=== PATIENT | female | born 1985 | race Caucasian/White ===

== ENCOUNTER 2023-01-03 12:00 | Emergency (ER) | payer OTHER ==
[2023-01-03 12:27] VITALS: BP 117/80; PULSE 89; RESP 16; TEMP 98.2; BMI 27.1
[2023-01-03 13:10] LABS: THROAT:GRP A STREP NOT DETECTED (NOTDETECTED)
== END 2023-01-03 18:21 | disposition home or self-care (01) ==
LOC: JERFT 12:00
DX: L04.9 Acute lymphadenitis, unspecified (principal)
CPT/HCPCS: 0241U-QW; 76536-TC; 87651; 99284-25

== ENCOUNTER 2023-10-20 11:33 | Inpatient (IN) | payer OTHER ==
[2023-10-20] MEDS ORDERED: SODIUM CHLORIDE 0.9% 500 ML INFUS.BAG IV ONE ×2 (12:25→16:05)
[2023-10-20] MEDS ORDERED: HYDROmorphone HCl 2 MG/ML VIAL IVPUSH ONE ×2 (12:37→15:47)
[2023-10-20] MEDS ORDERED: ACETAMINOPHEN 1000 MG/100 ML BAG IVPB ONE (12:37)
[2023-10-20] MEDS ORDERED: ACETAMINOPHEN INJECTION 100 ML IVPB ONE (12:55)
[2023-10-20] MEDS ORDERED: HYDROmorphone HCl 2 MG/ML VIAL ONE ×2 (12:55→15:58)
[2023-10-20 13:04] LABS: BASO % 0.3 % (0-2.0); HEMATOCRIT 40.4 % (32.4-45.2); HEMOGLOBIN 13.8 GM/dL (10.7-15.3); MCHC 34.1 g/dl (32.0-36.0); MEAN CELL VOLUME 93.8 fl (80-96); MEAN PLT VOLUME 8.9 fl (7.5-11.1); MONO % 2.3 % (3.8-10.2); NEUT % 90.4 % (42.8-82.8); PLATELET COUNT 346 10^3/uL (134-434); RDW 14.3 % (11.6-15.6); WHITE BLOOD COUNT 16.5 K/mm3 (4.0-10.0)
[2023-10-20 13:32] LABS: POTASSIUM 3.9 mmol/L (3.5-5.1)
[2023-10-20 13:34] LABS: CALCIUM 9.2 mg/dL (8.5-10.1)
[2023-10-20 13:35] LABS: ALBUMIN 3.9 g/dl (3.4-5.0); BLOOD UREA NITROGEN 10.8 mg/dL (7-18)
[2023-10-20 13:38] LABS: CREATININE 0.9 mg/dL (0.55-1.3)
[2023-10-20 13:39] LABS: BILIRUBIN,TOTAL 0.4 mg/dL (0.2-1); TOT PROT 8.2 g/dl (6.4-8.2)
[2023-10-20 13:58] LABS: LACTIC ACID 2.2 mmol/L (0.4-2.0)
[2023-10-20] MEDS ORDERED: CEFTRIAXONE 1,000 MG in DEXTROSE 5%-WATER - 50 ML IVPB ONE (14:33)
[2023-10-20 14:40] LABS: URINE APPEARANCE CLEAR; URINE BILIRUBIN NEGATIVE (NEGATIVE); URINE COLOR YELLOW; URINE GLUCOSE (UA) NEGATIVE (NEGATIVE); URINE KETONE NEGATIVE (NEGATIVE); URINE LEUK ESTERASE NEGATIVE (NEGATIVE); URINE NITRITE NEGATIVE (NEGATIVE); URINE PROTEIN NEGATIVE (NEGATIVE); URINE UROBILINOGEN 0.2 mg/dL (0.2-1.0)
[2023-10-20 14:43] LABS: HCG,QUALITATIVE URINE Negative
[2023-10-20] MEDS ORDERED: CEFTRIAXONE 1 GM/50 ML BAG ONE ×2 (15:50→22:20)
[2023-10-20] MEDS ORDERED: SODIUM CHLORIDE 500 ML IV STA (16:22)
[2023-10-20 16:44] LABS: INR 1.44 (0.83-1.09); PROTHROMBIN TIME (PATIENT) 16.6 SEC (9.7-13.0)
[2023-10-20 16:47] LABS: ACTIVATED PTT 31.5 SECONDS (25.2-36.5)
[2023-10-20] MEDS ORDERED: IBUPROFEN 600 MG TABLET (FP) PO ONE ×2 (17:13→17:22)
[2023-10-20] MEDS ORDERED: KETOROLAC TROMETHAMINE 15 MG/ML VIAL IVPUSH ONE (17:13)
[2023-10-20] MEDS ORDERED: KETOROLAC TROMETHAMINE 15 MG/ML VIAL ONE (17:22)
[2023-10-20] MEDS ORDERED: LACTATED RINGERS SOLUTION 1,000 ML/1,000 ML INFUS.BAG IV SCH (17:45)
[2023-10-20] MEDS ORDERED: morphine CARPU-JECT 2 MG/1 ML DISP.SYRIN IVPUSH PRN (17:46)
[2023-10-20] MEDS ORDERED: HYDROmorphone HCl 2 MG/ML VIAL IVPUSH PRN (17:47)
[2023-10-20 18:02] LABS: LACTIC ACID 2.2 mmol/L (0.4-2.0)
[2023-10-20] MEDS ORDERED: SODIUM CHLORIDE 1,000 ML IV SCH (21:30)
[2023-10-20] MEDS ORDERED: CIPROFLOXACIN 400 MG/D5W 400 MG/200 ML IVPB IVPB SCH (22:00)
[2023-10-20] MEDS ORDERED: CEFTRIAXONE 1 GM in DEXTROSE 5%-WATER - 50 ML IVPB ONE (22:30)
[2023-10-21 04:57] VITALS: BMI 30.6
[2023-10-21 06:57] LABS: HEMATOCRIT 32.8 % (32.4-45.2); HEMOGLOBIN 10.9 GM/dL (10.7-15.3); MCH 31.5 pg (25.7-33.7); MCHC 33.1 g/dl (32.0-36.0); MEAN CELL VOLUME 95.2 fl (80-96); MEAN PLT VOLUME 8.7 fl (7.5-11.1); PLATELET COUNT 234 10^3/uL (134-434); RBC 3.45 M/mm3 (3.60-5.2); RDW 13.7 % (11.6-15.6)
[2023-10-21 07:09] LABS: POTASSIUM 3.3 mmol/L (3.5-5.1)
[2023-10-21 07:17] LABS: BLOOD UREA NITROGEN 7.4 mg/dL (7-18); MAGNESIUM 1.5 mg/dL (1.8-2.4)
[2023-10-21 07:21] LABS: CREATININE 0.6 mg/dL (0.55-1.3); PHOSPHOROUS 2.9 mg/dL (2.5-4.9)
[2023-10-21 08:05] LABS: CALCIUM 7.8 mg/dL (8.5-10.1)
[2023-10-21] MEDS ORDERED: MAGNESIUM 2GM/50ML STERILE WATER IVPB IVPB ONE ×2 (08:45→12:15)
[2023-10-21] MEDS: ENOXAPARIN NA (PORCINE) 40 MG/0.4 ML DISP.SYRIN SQ SCH (10:05)
[2023-10-21] MEDS ORDERED: SODIUM CHLORIDE 1,000 ML IV SCH (10:15)
[2023-10-21] MEDS ORDERED: POTASSIUM CHLORIDE ORAL LIQUID 20 MEQ/15 ML PO ONE ×2 (10:45→13:00)
[2023-10-21] MEDS: ACETAMINOPHEN 1000 MG/100 ML BAG IVPB PRN ×2 (11:36→16:24)
[2023-10-21] MEDS: CEFTRIAXONE 1 GM in DEXTROSE 5%-WATER - 50 ML IVPB SCH (13:34)
[2023-10-21] MEDS: SODIUM CHLORIDE 1,000 ML IV SCH ×2 (13:35→20:22)
[2023-10-21] MEDS ORDERED: MAGNESIUM SULF 50% (8.12 MEQ/2 ML-1 GM VIAL) IVPB SCH ×2 (16:45→22:00)
[2023-10-21] MEDS ORDERED: ACETAMINOPHEN 1000 MG/100 ML BAG IVPB ONE (20:08)
[2023-10-22] MEDS: ACETAMINOPHEN 1000 MG/100 ML BAG IVPB PRN ×3 (03:34→16:13)
[2023-10-22] MEDS: SODIUM CHLORIDE 1,000 ML IV SCH (03:35)
[2023-10-22 07:25] LABS: BASO % 0.2 % (0-2.0); EOS % 0.3 % (0-4.5); HEMATOCRIT 33.7 % (32.4-45.2); HEMOGLOBIN 11.3 GM/dL (10.7-15.3); LYMPH % 7.2 % (8-40); MCH 31.7 pg (25.7-33.7); MCHC 33.5 g/dl (32.0-36.0); MEAN CELL VOLUME 94.7 fl (80-96); MEAN PLT VOLUME 8.8 fl (7.5-11.1); MONO % 3.1 % (3.8-10.2); NEUT % 89.2 % (42.8-82.8); PLATELET COUNT 227 10^3/uL (134-434); RBC 3.56 M/mm3 (3.60-5.2); WHITE BLOOD COUNT 16.5 K/mm3 (4.0-10.0)
[2023-10-22 08:03] LABS: POTASSIUM 3.3 mmol/L (3.5-5.1)
[2023-10-22 08:10] LABS: CALCIUM 8.3 mg/dL (8.5-10.1)
[2023-10-22 08:11] LABS: MAGNESIUM 2.2 mg/dL (1.8-2.4)
[2023-10-22 08:14] LABS: CREATININE 0.6 mg/dL (0.55-1.3); PHOSPHOROUS 2.6 mg/dL (2.5-4.9)
[2023-10-22 08:16] LABS: BILIRUBIN,TOTAL 0.4 mg/dL (0.2-1)
[2023-10-22 08:30] LABS: ALBUMIN 2.4 g/dl (3.4-5.0); TOT PROT 5.6 g/dl (6.4-8.2)
[2023-10-22] MEDS ORDERED: MAGNESIUM SULF 50% (8.12 MEQ/2 ML-1 GM VIAL) IVPB SCH ×2 (10:00)
[2023-10-22] MEDS ORDERED: POTASSIUM CHLORIDE ORAL LIQUID 20 MEQ/15 ML PO SCH ×2 (10:00)
[2023-10-22] MEDS: POTASSIUM CHLORIDE 40 MEQ in SODIUM CHLORIDE 1,000 ML IV SCH ×2 (10:15→18:10)
[2023-10-22] MEDS: CEFTRIAXONE 1 GM in DEXTROSE 5%-WATER - 50 ML IVPB SCH (10:16)
[2023-10-22] MEDS: ENOXAPARIN NA (PORCINE) 40 MG/0.4 ML DISP.SYRIN SQ SCH (13:04)
[2023-10-22] MEDS: PIPERACILLIN/TAZOB 3.375 GM 3.375 GM in DEXTROSE 5%-WATER - 50 ML IVPB SCH ×2 (15:09→18:11)
[2023-10-23] MEDS ORDERED: ACETAMINOPHEN 1000 MG/100 ML BAG IVPB ONE (03:38)
[2023-10-23] MEDS: PIPERACILLIN/TAZOB 3.375 GM 3.375 GM in DEXTROSE 5%-WATER - 50 ML IVPB SCH ×3 (04:00→17:33)
[2023-10-23 07:19] LABS: HEMATOCRIT 34.6 % (32.4-45.2); HEMOGLOBIN 11.4 GM/dL (10.7-15.3); MCH 31.5 pg (25.7-33.7); MEAN CELL VOLUME 95.5 fl (80-96); MEAN PLT VOLUME 8.8 fl (7.5-11.1); PLATELET COUNT 274 10^3/uL (134-434); RBC 3.62 M/mm3 (3.60-5.2); WHITE BLOOD COUNT 15.5 K/mm3 (4.0-10.0)
[2023-10-23 07:37] LABS: POTASSIUM 3.3 mmol/L (3.5-5.1)
[2023-10-23 07:41] LABS: CALCIUM 8.4 mg/dL (8.5-10.1)
[2023-10-23 07:42] LABS: BLOOD UREA NITROGEN 4.5 mg/dL (7-18); MAGNESIUM 1.8 mg/dL (1.8-2.4)
[2023-10-23 07:44] LABS: ALBUMIN 2.6 g/dl (3.4-5.0); CREATININE 0.6 mg/dL (0.55-1.3)
[2023-10-23 07:45] LABS: PHOSPHOROUS 3.1 mg/dL (2.5-4.9)
[2023-10-23 07:46] LABS: BILIRUBIN,TOTAL 0.5 mg/dL (0.2-1); TOT PROT 6.1 g/dl (6.4-8.2)
[2023-10-23] MEDS ORDERED: SODIUM CHLORIDE 1,000 ML IV SCH (08:15)
[2023-10-23] MEDS: ENOXAPARIN NA (PORCINE) 40 MG/0.4 ML DISP.SYRIN SQ SCH (10:18)
[2023-10-23] MEDS ORDERED: ACETAMINOPHEN 1000 MG/100 ML BAG IVPB PRN (13:38)
[2023-10-23] MEDS: KCL 10 MEQ IVPB 10 MEQ/100 ML INFUS.BAG IVPB SCH ×3 (14:55→20:45)
[2023-10-23] MEDS ORDERED: POTASSIUM CHLORIDE ORAL LIQUID 20 MEQ/15 ML PO ONE (17:39)
[2023-10-23] MEDS: LACTATED RINGERS SOLUTION 1,000 ML/1,000 ML INFUS.BAG IV SCH (17:57)
[2023-10-23 18:29] LABS: ALLENS TEST POSITIVE; ARTERIAL BLD GAS O2 SATURATION 96.7 % (95-98); ARTERIAL BLOOD GAS BASE EXCESS -5.9 mmol/L (-2-2); ARTERIAL BLOOD GAS PO2 88.7 mmHg (80-100); ARTERIAL BLOOD GAS pH 7.377 (7.350-7.450)
[2023-10-23] MEDS ORDERED: KCL 10 MEQ IVPB 10 MEQ/100 ML INFUS.BAG IVPB SCH (20:45)
[2023-10-24] MEDS: LACTATED RINGERS SOLUTION 1,000 ML/1,000 ML INFUS.BAG IV SCH ×3 (00:11→16:58)
[2023-10-24] MEDS: ACETAMINOPHEN 1000 MG/100 ML BAG IVPB PRN ×2 (00:15→10:57)
[2023-10-24] MEDS: PIPERACILLIN/TAZOB 3.375 GM 3.375 GM in DEXTROSE 5%-WATER - 50 ML IVPB SCH ×3 (03:05→17:00)
[2023-10-24 09:28] LABS: HEMATOCRIT 35.3 % (32.4-45.2); HEMOGLOBIN 11.8 GM/dL (10.7-15.3); MCHC 33.4 g/dl (32.0-36.0); MEAN CELL VOLUME 95.8 fl (80-96); MEAN PLT VOLUME 8.5 fl (7.5-11.1); PLATELET COUNT 315 10^3/uL (134-434); RBC 3.69 M/mm3 (3.60-5.2); RDW 14.1 % (11.6-15.6)
[2023-10-24 09:43] LABS: POTASSIUM 3.8 mmol/L (3.5-5.1)
[2023-10-24 09:49] LABS: ALBUMIN 2.3 g/dl (3.4-5.0); BLOOD UREA NITROGEN 4.4 mg/dL (7-18); CALCIUM 8.4 mg/dL (8.5-10.1)
[2023-10-24 09:50] LABS: MAGNESIUM 1.9 mg/dL (1.8-2.4)
[2023-10-24 09:52] LABS: CREATININE 0.5 mg/dL (0.55-1.3); PHOSPHOROUS 3.2 mg/dL (2.5-4.9)
[2023-10-24 09:53] LABS: BILIRUBIN,TOTAL 0.5 mg/dL (0.2-1); TOT PROT 6.1 g/dl (6.4-8.2)
[2023-10-24] MEDS: ENOXAPARIN NA (PORCINE) 40 MG/0.4 ML DISP.SYRIN SQ SCH (10:56)
[2023-10-24] MEDS ORDERED: ACETAMINOPHEN 1000 MG/100 ML BAG IVPB ONE (23:07)
[2023-10-25] MEDS ORDERED: PIPERACILLIN/TAZOBACTAM 3.375 GM VIAL IVPB ONE (02:52)
[2023-10-25] MEDS: PIPERACILLIN/TAZOB 3.375 GM 3.375 GM in DEXTROSE 5%-WATER - 50 ML IVPB SCH (02:55)
[2023-10-25] MEDS: LACTATED RINGERS SOLUTION 1,000 ML/1,000 ML INFUS.BAG IV SCH (06:38)
[2023-10-25 08:43] LABS: POTASSIUM 3.5 mmol/L (3.5-5.1)
[2023-10-25 08:48] LABS: BLOOD UREA NITROGEN 4.2 mg/dL (7-18); CALCIUM 8.3 mg/dL (8.5-10.1)
[2023-10-25 08:52] LABS: CREATININE 0.4 mg/dL (0.55-1.3)
[2023-10-25] MEDS: ACETAMINOPHEN 325 MG TABLET (FP) PO PRN ×2 (09:07→21:12)
[2023-10-25] MEDS: ENOXAPARIN NA (PORCINE) 40 MG/0.4 ML DISP.SYRIN SQ SCH (09:08)
[2023-10-25 09:12] LABS: BASO % 0.7 % (0-2.0); EOS % 3.3 % (0-4.5); HEMATOCRIT 36.1 % (32.4-45.2); HEMOGLOBIN 12.2 GM/dL (10.7-15.3); LYMPH % 17.8 % (8-40); MCH 31.6 pg (25.7-33.7); MCHC 33.7 g/dl (32.0-36.0); MEAN CELL VOLUME 93.7 fl (80-96); MEAN PLT VOLUME 8.1 fl (7.5-11.1); MONO % 11.5 % (3.8-10.2); NEUT % 66.7 % (42.8-82.8); PLATELET COUNT 373 10^3/uL (134-434); RBC 3.85 M/mm3 (3.60-5.2); RDW 14.6 % (11.6-15.6); WHITE BLOOD COUNT 9.8 K/mm3 (4.0-10.0)
[2023-10-25] MEDS ORDERED: D5-1/2NS+20 MEQ KCL - 20 MEQ/1,000 ML INFUS.BAG IV SCH (10:30)
[2023-10-25] MEDS: D5-1/2NS+20 MEQ KCL - 20 MEQ/1,000 ML INFUS.BAG IV SCH (11:12)
[2023-10-26] MEDS: D5-1/2NS+20 MEQ KCL - 20 MEQ/1,000 ML INFUS.BAG IV SCH ×2 (02:51→10:30)
[2023-10-26 09:29] LABS: BASO % 0.6 % (0-2.0); EOS % 2.4 % (0-4.5); HEMATOCRIT 35.5 % (32.4-45.2); LYMPH % 23.6 % (8-40); MCH 31.8 pg (25.7-33.7); MCHC 33.9 g/dl (32.0-36.0); MEAN CELL VOLUME 93.8 fl (80-96); MEAN PLT VOLUME 7.8 fl (7.5-11.1); NEUT % 62.4 % (42.8-82.8); PLATELET COUNT 440 10^3/uL (134-434); RBC 3.79 M/mm3 (3.60-5.2); RDW 13.8 % (11.6-15.6); WHITE BLOOD COUNT 8.8 K/mm3 (4.0-10.0)
[2023-10-26] MEDS ORDERED: MAGNESIUM CITRATE 300 ML BOTTLE PO ONE (10:00)
[2023-10-26 11:36] LABS: CHLORIDE 104 mmol/L (98-107); POTASSIUM 3.5 mmol/L (3.5-5.1); SODIUM 138 mmol/L (136-145)
[2023-10-26 12:24] LABS: ANION GAP 12 mmol/L (4-13); CO2 22 mmol/L (21-32)
[2023-10-26 12:30] LABS: CALCIUM 8.5 mg/dL (8.5-10.1)
[2023-10-26 12:31] LABS: GLUCOSE,RANDOM 116 mg/dL (74-106)
[2023-10-26 12:33] LABS: PHOSPHOROUS 2.8 mg/dL (2.5-4.9)
[2023-10-26 12:35] LABS: CREATININE 0.4 mg/dL (0.55-1.3)
[2023-10-26 12:38] LABS: BLOOD UREA NITROGEN 2.7 mg/dL (7-18)
[2023-10-26] MEDS: PIPERACILLIN/TAZOB 3.375 GM 3.375 GM in DEXTROSE 5%-WATER - 50 ML IVPB SCH (17:10)
[2023-10-27] MEDS: PIPERACILLIN/TAZOB 3.375 GM 3.375 GM in DEXTROSE 5%-WATER - 50 ML IVPB SCH ×2 (01:00→09:37)
[2023-10-27] MEDS: D5-1/2NS+20 MEQ KCL - 20 MEQ/1,000 ML INFUS.BAG IV SCH (06:28)
[2023-10-27 08:25] LABS: BASO % 0.6 % (0-2.0); EOS % 2.3 % (0-4.5); HEMATOCRIT 34.2 % (32.4-45.2); HEMOGLOBIN 11.8 GM/dL (10.7-15.3); LYMPH % 30.2 % (8-40); MCH 32.2 pg (25.7-33.7); MCHC 34.5 g/dl (32.0-36.0); MEAN CELL VOLUME 93.2 fl (80-96); MEAN PLT VOLUME 7.9 fl (7.5-11.1); MONO % 9.7 % (3.8-10.2); NEUT % 57.2 % (42.8-82.8); PLATELET COUNT 476 10^3/uL (134-434); RBC 3.67 M/mm3 (3.60-5.2); RDW 13.9 % (11.6-15.6); WHITE BLOOD COUNT 8.1 K/mm3 (4.0-10.0)
[2023-10-27 08:59] LABS: CHLORIDE 104 mmol/L (98-107); POTASSIUM 3.4 mmol/L (3.5-5.1); SODIUM 140 mmol/L (136-145)
[2023-10-27 09:10] LABS: ALBUMIN 2.5 g/dl (3.4-5.0); ANION GAP 7 mmol/L (4-13); CALCIUM 8.7 mg/dL (8.5-10.1); CO2 29 mmol/L (21-32); GLUCOSE,RANDOM 114 mg/dL (74-106)
[2023-10-27 09:12] LABS: MAGNESIUM 2.5 mg/dL (1.8-2.4)
[2023-10-27 09:13] LABS: CREATININE 0.4 mg/dL (0.55-1.3)
[2023-10-27 09:14] LABS: PHOSPHOROUS 3.8 mg/dL (2.5-4.9); SGOT/AST 9 U/L (15-37); SGPT/ALT 9 U/L (13-61)
[2023-10-27 09:15] LABS: TOT PROT 6.5 g/dl (6.4-8.2)
[2023-10-27 09:17] LABS: ALK PHOS 60 U/L (45-117); BILIRUBIN,TOTAL 0.2 mg/dL (0.2-1); BLOOD UREA NITROGEN 2.4 mg/dL (7-18)
[2023-10-27] MEDS: ENOXAPARIN NA (PORCINE) 40 MG/0.4 ML DISP.SYRIN SQ SCH (09:37)
[2023-10-27] MEDS ORDERED: POTASSIUM CHLORIDE TABS 20 MEQ TABLET.ER (FP) PO ONE (12:15)
[2023-10-27 14:45] VITALS: BP 96/59; PULSE 86; RESP 19; TEMP 97.9
[2023-10-30] MEDS ORDERED: CIPROFLOXACIN 500 MG TABLET (RESTRICTED TO ID) PO SCH (00:45)
[2023-10-30] MEDS ORDERED: metroNIDAZOLE 500 MG TABLET PO ONE (00:47)
[2023-10-30] MEDS ORDERED: metroNIDAZOLE 250 MG TABLET PO SCH (06:00)
[2023-10-31 15:09] LABS: ATYPICAL pANCA <1:20 titer (Neg:<1:20)
== END 2023-10-27 16:30 | disposition home or self-care (01) | DRG 720 ==
LOC: JER 11:33 → JERBED 17:47 → J4W 10-21 03:58 → OBSVTOIN 10-21 10:36 → J6S 10-23 23:48
PROVIDERS: ADMIT Internal Medicine; ATTEND Internal Medicine
PROC: 0DBP8ZX Excision of Rectum, Via Natural or Artificial Opening Endoscopic, Diagnostic (ICD-10-PCS; 2023-10-26)
PROC: 0DBK8ZX Excision of Ascending Colon, Via Natural or Artificial Opening Endoscopic, Diagnostic (ICD-10-PCS; principal; 2023-10-26 13:30)
DX: A41.89 Other specified sepsis (principal); D72.829 Elevated white blood cell count, unspecified; E87.20 Acidosis, unspecified; I95.9 Hypotension, unspecified; E83.42 Hypomagnesemia; E87.6 Hypokalemia; A09 Infectious gastroenteritis and colitis, unspecified; A54.9 Gonococcal infection, unspecified; T82.856A Stenosis of peripheral vascular stent, initial encounter; Y83.8 Other surgical procedures as the cause of abnormal reaction of the patient, or of later complication, without mention of misadventure at the time of the procedure
CPT/HCPCS: 0241U-QW; 36415; 36600; 74177-TC; 76705-TC; 76830-TC; 78226-TC; 80048; 80053; 81003; 82150; 82803; 83605; 83690; 83735; 84100; 84703; 85025; 85027; 85610; 85730; 86140; 86256; 86480; 86671; 86850; 86900; 86901; 87040; 87045; 87046; 87086; 87205; 87209; 87324; 87449; 87491; 87591; 87661; 88305-TC; 97116-GP; 97162-GP; 99285-25; A9537; G0378; Q9967

== ENCOUNTER 2023-10-29 17:26 | Observation (INO) | payer OTHER ==
[2023-10-29 17:36] VITALS: BMI 27.8
[2023-10-29] MEDS ORDERED: ACETAMINOPHEN INJECTION 100 ML IVPB ONE (17:56)
[2023-10-29 19:15] LABS: BASO % 0.4 % (0-2.0); EOS % 1.1 % (0-4.5); HEMATOCRIT 35.4 % (32.4-45.2); LYMPH % 31.9 % (8-40); MCH 31.5 pg (25.7-33.7); MCHC 33.8 g/dl (32.0-36.0); MEAN CELL VOLUME 93.3 fl (80-96); MEAN PLT VOLUME 7.3 fl (7.5-11.1); NEUT % 60.6 % (42.8-82.8); PLATELET COUNT 621 10^3/uL (134-434); RDW 14.2 % (11.6-15.6); WHITE BLOOD COUNT 8.2 K/mm3 (4.0-10.0)
[2023-10-29 19:23] LABS: INR 1.49 (0.83-1.09); PROTHROMBIN TIME (PATIENT) 17.2 SEC (9.7-13.0)
[2023-10-29 19:25] LABS: ACTIVATED PTT 31.6 SECONDS (25.2-36.5)
[2023-10-29 19:55] LABS: CHLORIDE 103 mmol/L (98-107); POTASSIUM 3.8 mmol/L (3.5-5.1); SODIUM 139 mmol/L (136-145)
[2023-10-29 19:57] LABS: ALBUMIN 2.9 g/dl (3.4-5.0); ANION GAP 5 mmol/L (4-13); BLOOD UREA NITROGEN 5.1 mg/dL (7-18); CO2 31 mmol/L (21-32); GLUCOSE,RANDOM 97 mg/dL (74-106)
[2023-10-29 20:00] LABS: SGOT/AST 21 U/L (15-37); SGPT/ALT 18 U/L (13-61)
[2023-10-29 20:02] LABS: BILIRUBIN,TOTAL < 0.1 mg/dL (0.2-1)
[2023-10-29 20:03] LABS: ALK PHOS 64 U/L (45-117)
[2023-10-29 20:06] LABS: CREATININE 0.6 mg/dL (0.55-1.3)
[2023-10-29] MEDS ORDERED: VANCOMYCIN 1,000 MG in DEXTROSE 5%-WATER - 250 ML IVPB ONE (20:07)
[2023-10-29] MEDS ORDERED: VANCOMYCIN 1 GRAM (PRE-DOCKED) 1,000 MG/250 ML BAG IVPB ONE (20:23)
[2023-10-29] MEDS ORDERED: ENOXAPARIN NA (PORCINE) 60 MG/0.6 ML DISP.SYRIN SQ SCH (22:52)
[2023-10-29] MEDS ORDERED: ENOXAPARIN NA (PORCINE) 60 MG/0.6 ML DISP.SYRIN SQ ONE (23:19)
[2023-10-29] MEDS ORDERED: ACETAMINOPHEN 1000 MG/100 ML BAG IVPB PRN (23:24)
[2023-10-30] MEDS ORDERED: metroNIDAZOLE 500 MG TABLET PO ONE (00:51)
[2023-10-30] MEDS ORDERED: metroNIDAZOLE 250 MG TABLET PO ONE (01:00)
[2023-10-30] MEDS ORDERED: metroNIDAZOLE 250 MG TABLET ONE ×2 (01:29→05:09)
[2023-10-30] MEDS: CIPROFLOXACIN 500 MG TABLET (RESTRICTED TO ID) PO SCH ×3 (01:33→21:01)
[2023-10-30] MEDS: metroNIDAZOLE 250 MG TABLET PO SCH ×3 (05:13→21:01)
[2023-10-30] MEDS ORDERED: ACETAMINOPHEN 1000 MG/100 ML BAG IVPB ONE (06:33)
[2023-10-30 06:56] LABS: HEMOGLOBIN 11.1 GM/dL (10.7-15.3); MCH 31.5 pg (25.7-33.7); MCHC 33.6 g/dl (32.0-36.0); MEAN CELL VOLUME 93.7 fl (80-96); MEAN PLT VOLUME 7.9 fl (7.5-11.1); PLATELET COUNT 594 10^3/uL (134-434); RBC 3.52 M/mm3 (3.60-5.2); WHITE BLOOD COUNT 9.2 K/mm3 (4.0-10.0)
[2023-10-30 07:18] LABS: POTASSIUM 3.8 mmol/L (3.5-5.1)
[2023-10-30 07:22] LABS: BLOOD UREA NITROGEN 4.8 mg/dL (7-18); CALCIUM 8.4 mg/dL (8.5-10.1)
[2023-10-30 07:23] LABS: ALBUMIN 2.5 g/dl (3.4-5.0)
[2023-10-30 07:26] LABS: CREATININE 0.6 mg/dL (0.55-1.3)
[2023-10-30 07:27] LABS: BILIRUBIN,TOTAL 0.2 mg/dL (0.2-1); TOT PROT 6.2 g/dl (6.4-8.2)
[2023-10-30] MEDS ORDERED: VANCOMYCIN 1,000 MG in DEXTROSE 5%-WATER - 250 ML IVPB SCH (09:00)
[2023-10-30] MEDS ORDERED: VANCOMYCIN/WATER FOR INJ (PEG) 1,000 MG/200 ML BAG IVPB SCH (09:00)
[2023-10-30] MEDS ORDERED: ENOXAPARIN NA (PORCINE) 40 MG/0.4 ML DISP.SYRIN SQ SCH ×2 (10:00→19:00)
[2023-10-30 16:07] VITALS: RESP 18
[2023-10-30] MEDS: ENOXAPARIN NA (PORCINE) 60 MG/0.6 ML DISP.SYRIN SQ SCH (21:01)
[2023-10-31] MEDS: metroNIDAZOLE 250 MG TABLET PO SCH ×2 (06:04→13:43)
[2023-10-31 06:24] VITALS: BP 93/46; PULSE 59; TEMP 97.9
[2023-10-31] MEDS: ENOXAPARIN NA (PORCINE) 60 MG/0.6 ML DISP.SYRIN SQ SCH (09:41)
[2023-10-31 09:53] LABS: HEMATOCRIT 35.5 % (32.4-45.2); HEMOGLOBIN 11.9 GM/dL (10.7-15.3); MCH 31.7 pg (25.7-33.7); MCHC 33.5 g/dl (32.0-36.0); MEAN CELL VOLUME 94.8 fl (80-96); PLATELET COUNT 636 10^3/uL (134-434); RBC 3.75 M/mm3 (3.60-5.2); RDW 14.1 % (11.6-15.6); WHITE BLOOD COUNT 8.6 K/mm3 (4.0-10.0)
[2023-10-31] MEDS ORDERED: CIPROFLOXACIN 500 MG TABLET (RESTRICTED TO ID) PO SCH (10:00)
[2023-10-31 10:18] LABS: CALCIUM 8.8 mg/dL (8.5-10.1); POTASSIUM 4.1 mmol/L (3.5-5.1)
[2023-10-31 10:22] LABS: CREATININE 0.5 mg/dL (0.55-1.3)
== END 2023-10-31 14:57 | disposition home or self-care (01) ==
LOC: JER 17:26 → JERBED 20:38 → J5S 10-30 10:07
PROVIDERS: ADMIT Internal Medicine; ATTEND Internal Medicine
PROC: 3E033NZ Introduction of Analgesics, Hypnotics, Sedatives into Peripheral Vein, Percutaneous Approach (ICD-10-PCS; principal; 2023-10-29)
PROC: 3E023GC Introduction of Other Therapeutic Substance into Muscle, Percutaneous Approach (ICD-10-PCS; 2023-10-29)
DX: I80.9 Phlebitis and thrombophlebitis of unspecified site (principal); K50.90 Crohn's disease, unspecified, without complications; Z87.891 Personal history of nicotine dependence; Z86.718 Personal history of other venous thrombosis and embolism; Z88.6 Allergy status to analgesic agent
CPT/HCPCS: 36415; 80048; 80053; 85025; 85027; 85610; 85730; 87040; 93005; 93010; 93971; 96372; 96374; 99285-25; G0378